=== PATIENT | female | born 2000 | race Caucasian/White ===

== ENCOUNTER 2018-08-24 19:09 | Emergency (ER) | payer OTHER ==
[~2018-08-24] VITALS: Ht 170.2 cm; Wt 77.6 kg
[2018-08-24] MEDS ORDERED: LEVALBUTEROL HCL SOLN NEBU 1.25 MG/3 ML NEB INH ONE (20:45)
[2018-08-24] MEDS: SODIUM CHLORIDE 0.9% 1000ML 1,000 ML IV SCH ×2 (21:00→22:33)
[2018-08-24] MEDS ORDERED: POTASSIUM CHLORIDE 20 MEQ TAB CR PO STA (22:06)
[2018-08-24 22:49] VITALS: BP 129/70
== END 2018-08-24 22:53 | disposition home or self-care (01) ==
LOC: FSED 19:09
DX: O26.93 Pregnancy related conditions, unspecified, third trimester (principal); R05 Cough; J45.21 Mild intermittent asthma with (acute) exacerbation; J02.9 Acute pharyngitis, unspecified; E87.6 Hypokalemia; K52.9 Noninfective gastroenteritis and colitis, unspecified; D50.9 Iron deficiency anemia, unspecified
CPT/HCPCS: 99283; J7030

== ENCOUNTER 2018-08-25 19:32 | Emergency (ER) | payer OTHER ==
[~2018-08-25] VITALS: Ht 170.2 cm; Wt 77.6 kg
[2018-08-25] MEDS ORDERED: LEVALBUTEROL HCL SOLN NEBU 1.25 MG/3 ML NEB INH ONE (20:00)
== END 2018-08-25 20:49 | disposition home or self-care (01) ==
LOC: FSED 19:32
DX: O26.93 Pregnancy related conditions, unspecified, third trimester (principal); R06.00 Dyspnea, unspecified; J45.31 Mild persistent asthma with (acute) exacerbation
CPT/HCPCS: 99282